=== PATIENT | female | born 1995 ===

== ENCOUNTER 2018-09-26 17:34 | Emergency (ER) | payer SELFPAY ==
[2018-09-26 18:11] VITALS: RESP 18; BMI 29.2
[2018-09-26] MEDS ORDERED: Sodium Chloride 0.9% 500 ML IV STA (18:29)
[2018-09-26 19:08] LABS: ALB/GLOB RATIO 1.1 (1.1-1.8); ALBUMIN 4.2 g/dL (3.0-4.8); ALT/SGPT 18 U/L (7-56); AST/SGOT 26 U/L (14-36); BLOOD UREA NITROGEN 11 mg/dL (7-21); CALCIUM 8.9 mg/dL (8.4-10.5); GFR NON-AFRICAN AMERICAN > 60; LIPASE 66 U/L (23-300)
[2018-09-26 19:12] LABS: BASO # 0.01 K/mm3 (0.0-2.0); BASO % 0.1 % (0.0-3.0); EOS # 0.1 (0.0-0.7); EOS % 1.4 % (1.5-5.0); HEMOGLOBIN 12.2 g/dL (12.0-16.0); LYMPH # 2.4 (1.2-3.4); LYMPH % 33.8 % (22.0-35.0); MEAN CELL VOLUME 88.6 fl (80.0-105.0); MEAN CORPUSCULAR HEMOGLOBIN 28.9 pg (25.0-35.0); MEAN CORPUSCULAR HGB CONC 32.6 g/dl (31.0-37.0); MEAN PLATELET VOLUME 10.9 fl (7.0-11.0); MONO # 0.7 (0.1-0.6); MONO % 9.4 % (1.0-6.0); RBC 4.22 10^6/uL (3.5-6.1); RED CELL DISTRIBUTION WIDTH 14.3 % (11.5-14.5); WHITE BLOOD COUNT 7.1 10^3/uL (4.5-11.0)
[2018-09-26 19:18] LABS: URINE BILIRUBIN NEGATIVE (NEGATIVE); URINE BLOOD SMALL (NEGATIVE); URINE GLUCOSE (UA) NEGATIVE (NEGATIVE); URINE LEUKOCYTE ESTERASE TRACE Leu/uL (NEGATIVE); URINE PROTEIN NEGATIVE mg/dL (<30 mg/dL); URINE UROBILINOGEN 0.2 E.U./dL (<1 E.U./dL)
[2018-09-26 19:22] LABS: URINE APPEARANCE SL CLOUDY (CLEAR); URINE COLOR YELLOW (YELLOW)
[2018-09-26 19:29] LABS: URINE BACTERIA MOD /hpf
--- NOTE | 2018-09-26 20:28 | ED PDOC ---
Arrival/HPI - General Chief Complaint: Abdominal Pain Time Seen by Provider: 09/26/18 18:05 Historian: Patient - History of Present Illness Narrative History of Present Illness (Text): 09/26/18 20:25 23-year-old female presents today with a 4-day history of lower abdominal cramping with some urinary frequency. Patient admits that she is . Patient denies fevers or chills. States she has low back pain on both sides. Patient denies vaginal bleeding or vaginal discharge. She denies chest pain or shortness of breath. Patient states this is her first time being . No medications have been taken at home. Patient states she did not take any medications because she was not sure what she could take during . Past Medical History - Provider Review Nursing Documentation Reviewed: Yes - Travel History Have you recently traveled outside [place] w/in the past 3 mons?: No - Infectious Disease Hx of Infectious Diseases: None - Psychiatric Hx Substance Use: No - Anesthesia Hx Anesthesia: No Hx Anesthesia Reactions: No Hx Malignant Hyperthermia: No Family/Social History - Physician Review Nursing Documentation Reviewed: Yes Family/Social History: Unknown Family HX Smoking Status: Never Smoked Hx Alcohol Use: No Hx Substance Use: No Allergies/Home Meds Allergies/Adverse Reactions: Allergies No Known Allergies Allergy (Verified 09/26/18 18:14) Review of Systems - Review of Systems Constitutional: absent: Fatigue, Fevers Respiratory: absent: SOB, Cough Cardiovascular: absent: Chest Pain, Palpitations Gastrointestinal: Abdominal Pain. absent: Constipation, Diarrhea, Nausea, Vomiting Genitourinary Female: Frequency. absent: Dysuria, Hematuria, Vaginal Bleeding, Vaginal Discharge Musculoskeletal: Back Pain. absent: Arthralgias, Neck Pain Skin: absent: Rash, Pruritis Neurological: absent: Headache, Dizziness Psychiatric: absent: Anxiety, Depression Physical Exam Vital Signs Reviewed: Yes Vital Signs Temp Pulse Resp BP Pulse Ox 09/26/18 17:34 100.2 F H 84 18 109/66 99 Temperature: Afebrile Blood Pressure: Normal Pulse: Regular Respiratory Rate: Normal Appearance: Positive for: Well-Appearing, Non-Toxic, Comfortable Pain Distress: None Mental Status: Positive for: Alert and Oriented X 3 - Systems Exam Head: Present: Atraumatic Mouth: Present: Moist Mucous Membranes Neck: Present: Normal Range of Motion Respiratory/Chest: Present: Clear to Auscultation, Good Air Exchange. No: Respiratory Distress, Accessory Muscle Use Cardiovascular: Present: Regular Rate and Rhythm, Normal S1, S2. No: Murmurs Abdomen: Present: Tenderness (minimal lower abdominal tenderness. ). No: Distention, Peritoneal Signs, Rebound, Guarding Back: Present: Normal Inspection. No: CVA Tenderness, Midline Tenderness, Paraspinal Tenderness Upper Extremity: Present: Normal ROM Lower Extremity: Present: Normal ROM Neurological: Present: GCS=15, Speech Normal Skin: Present: Warm, Dry, Normal Color. No: Rashes Psychiatric: Present: Alert, Oriented x 3 Medical Decision Making ED Course and Treatment: 09/26/18 20:26 Patient is nontoxic well appearing in no distress. vitals are stable. CBC: wnl CMP: wnl Beta hC.30 TYPE AND SCREEN: B+ Urinalysis: + leukocytes, moderate bacteria. Ultrasound: FINDINGS: GESTATION: A tiny intrauterine gestational sac is identified which measures approximately 5.7 x 5.1 x 4.5 mm in size. This is out of range for age estimation. As of yet, there is no detection of a pole or cardiac activity. Consequently, an anembryonic gestation cannot be excluded at this time. Short-term reevaluation in 7-10 days is recommended. UTERUS: Unremarkable. No myometrial mass. CERVIX: Closed. Unremarkable. OVARIES: Unremarkable. No mass. FREE FLUID: No free fluid. IMPRESSION: Small intrauterine gestational sac as described above. As of yet, no detectable pole or cardiac activity. Therefore, an anembryonic gestation cannot be excluded at this time. Short-term reevaluation in 7-10 days is recommended. Electronically signed on Sep 26, 2018 8:56:47 PM EDT by: Buzz Healy M.D., M.B.A., Certified By [employer] Trained MRI and CT Specialist Discussed all the results the patient -Using inside account executive telephone sterilizer number: [id number] advised f/u with the obstetrics and gynecology professor within the next 2 days. advised immediate return if symptoms worsen,persist or if new symptoms develop. Patient verbalizes understanding of discharge instructions and need for immediate followup. All aspects of this case were discussed the attending of record. Impression: threatened , UTI Tylenol every 4 hours as needed for pain Keflex 1 capsule twice daily x 7 days. Increase fluids vitamins daily Followup with the coffee farmer within the next 2 days Return immediately if symptoms worsen persist or if new symptoms develop: High fevers, heavy bleeding, severe abdominal pain, vomiting, diarrhea, dizziness or weakness or any other concerning symptoms develop. - Lab Interpretations Lab Results: Total Bilirubin 0.2 mg/dL (0.2-1.3) 09/26/18 18:55 AST 26 U/L (14-36) 09/26/18 18:55 ALT 18 U/L (7-56) 09/26/18 18:55 Alkaline Phosphatase 75 U/L (38-126) 09/26/18 18:55 Total Protein 8.1 g/dL (5.8-8.3) 09/26/18 18:55 Albumin 4.2 g/dL (3.0-4.8) 09/26/18 18:55 Globulin 3.9 gm/dL 09/26/18 18:55 Albumin/Globulin Ratio 1.1 (1.1-1.8) 09/26/18 18:55 Lipase 66 U/L (23-300) 09/26/18 18:55 Urine Color Yellow (YELLOW) 09/26/18 18:55 Urine Appearance Sl cloudy (CLEAR) 09/26/18 18:55 Urine pH 6.0 (4.7-8.0) 09/26/18 18:55 Ur Specific [place] 1.025 (1.005-1.035) 09/26/18 18:55 Urine Protein Negative mg/dL (<30 mg/dL) 09/26/18 18:55 Urine Glucose (UA) Negative mg/dL (NEGATIVE) 09/26/18 18:55 Urine Ketones Negative mg/dL (NEGATIVE) 09/26/18 18:55 Urine Blood Small (NEGATIVE) H 09/26/18 18:55 Urine Nitrate Negative (NEGATIVE) 09/26/18 18:55 Urine Bilirubin Negative (NEGATIVE) 09/26/18 18:55 Urine Urobilinogen 0.2 E.U./dL (<1 E.U./dL) 09/26/18 18:55 Ur Leukocyte Esterase Trace Coco/uL (NEGATIVE) H 09/26/18 18:55 Urine RBC 2 - 5 /hpf (0-2) H 09/26/18 18:55 Urine WBC 5 - 10 /hpf (0-6) H 09/26/18 18:55 Ur Epithelial Cells 6 - 8 /hpf (0-5) H 09/26/18 18:55 Urine Bacteria Mod /hpf (NONE) 09/26/18 18:55 Beta HCG, Quant 4033.30 mIU/mL (0-6.15) H 09/26/18 18:55 - RAD Interpretation Radiology Orders: 09/26/18 18:30 OB TRANSVAGINAL [US] Stat - Medication Orders Current Medication Orders: Discontinued Medications Sodium Chloride (Sodium Chloride 0.9%) 500 mls @ 999 mls/hr IV .Q31M STA Stop: 09/26/18 18:59 Last Admin: 09/26/18 18:50 Dose: 999 mls/hr eMAR Start Stop Document 09/26/18 18:50 BB (Rec: 09/26/18 18:51 BB [id number]) Intravenous Solution Start Date 09/26/18 Start Time 18:51 Disposition/Present on Arrival - Present on Arrival Any Indicators Present on Arrival: No History of DVT/PE: No History of Uncontrolled Diabetes: No Urinary Catheter: No History of Decub. Ulcer: No History Surgical Site Infection Following: None - Disposition Have Diagnosis and Disposition been Completed?: Yes Diagnosis: Threatened , Urinary tract infection Disposition: HOME/ ROUTINE Disposition Time: 00:26 Patient Plan: Discharge Condition: GOOD Discharge Instructions (ExitCare): Threatened Miscarriage (DC) Print Language: KYRGYZ Additional Instructions: Tylenol every 4 hours as needed for pain Keflex 1 capsule twice daily x 7 days. Increase fluids vitamins daily Followup with the coffee farmer within the next 2 days Return immediately if symptoms worsen persist or if new symptoms develop: High fevers, heavy bleeding, severe abdominal pain, vomiting, diarrhea, dizziness or weakness or any other concerning symptoms develop. Prescriptions: Cephalexin [Keflex] 500 mg PO BID #14 capsule Pnv No.95/Ferrous Fum/Folic AC [ Tablet] 1 each PO DAILY #30 tablet [facility] [Outside] - Follow up with primary [facility] [Outside] - Follow up with primary Velma Bell MD [Staff Provider] - Follow up with primary Forms: [employer] (Liberian)
[2018-09-26 22:18] VITALS: PULSE 72; O2SAT 100
[2018-09-27 00:45] VITALS: BP 108/72; TEMP 98.9
--- NOTE | 2018-09-27 10:06 | US ---
Date of service: 09/26/2018 PROCEDURE: First trimester ultrasound. HISTORY: pain/ + test COMPARISON: None TECHNIQUE: Standard protocol for this study/examination. FINDINGS: LMP: 09/16/2018. Prior examinations from the current : None TECHNIQUE: Real-time 2D imaging, duplex and color Doppler. FINDINGS: No pole identified. Gestational sac measurement 5.1 mm. Below the threshold for calculation of a reliable gestational age Gestational age derived from LMP: 1 week 3 days CARLY based on LMP: 06/23/2019. No pole detected. Yolk sac not identified Cervix: No Cervical abnormalities: Negative examination for cervical dilatation or effacement. Closed cervix measuring 3.66 cm Subchorionic hemorrhage: None UTERUS: 4.7 x 4.8 x 7.8 cm. ADNEXA: Right: 1.9 x 2.1 cm. Normal Doppler arterial waveform documented. Left: 1.4 x 2.5 cm. Normal Doppler arterial waveform documented Fluid in the cul-de-sac: None IMPRESSION: Well-formed gestational sac without visible yolk sac or pole. Unremarkable uterus and cervix is well as adnexa. Concordant findings (preliminary report) provided by [facility].
== END 2018-09-27 00:45 | disposition home or self-care (01) ==
LOC: ED 17:34
DX: O20.0 Threatened abortion (principal); O23.40 Unspecified infection of urinary tract in pregnancy, unspecified trimester; Z3A.00 Weeks of gestation of pregnancy not specified
CPT/HCPCS: 76817; 80053; 81001; 81025; 83690; 84702; 85025; 86850; 86900; 87086; 87181; 99284; J7040

== ENCOUNTER 2018-10-09 07:49 | Emergency (ER) | payer SELFPAY ==
[2018-10-09 07:50] VITALS: BMI 29.2
[2018-10-09 08:05] VITALS: RESP 18; TEMP 97.7
--- NOTE | 2018-10-09 08:23 | ED PDOC ---
Arrival/HPI - General Chief Complaint: Lower Extremity Problem/Injury Historian: EMS - History of Present Illness Narrative History of Present Illness (Text): 10/09/18 08:18 23 year old F, 7 wks presents via EMS s/p mechanical fall this morning. Patient reports slipped while walking down the stairs, fell, landed on right ankle and twisted it. Patient denies any head trauma or LOC. EMS reports patient had an abdominal Ultrasound performed yesterday but they do not have the results. Patient denies any fevers, chills, headache, dizziness, chest pain, shortness of breath, dyspnea on exertion, cough, diaphoresis, abdominal pain, nausea, vomiting, diarrhea, back pain, neck pain, or any other complaint. Time/Duration: Prior to Arrival Symptom Onset: Sudden Symptom Course: Unchanged Activities at Onset: Light Context: Slipped Past Medical History - Provider Review Nursing Documentation Reviewed: Yes - Infectious Disease Hx of Infectious Diseases: None - Cardiac Hx Cardiac Disorders: No - Pulmonary Hx Respiratory Disorders: No - HEENT Hx HEENT Disorder: No - Renal Hx Renal Disorder: No - Endocrine/Metabolic Hx Endocrine Disorders: No - Hematological/Oncological Hx Blood Disorders: No - Integumentary Hx Dermatological Disorder: No - Musculoskeletal/Rheumatological Hx Musculoskeletal Disorders: No - Gastrointestinal Hx Gastrointestinal Disorders: No - Genitourinary/Gynecological Hx Genitourinary Disorders: No - Psychiatric Hx Psychophysiologic Disorder: No Hx Substance Use: No - Anesthesia Hx Anesthesia: No Hx Anesthesia Reactions: No Hx Malignant Hyperthermia: No Family/Social History - Physician Review Nursing Documentation Reviewed: Yes Family/Social History: Unknown Family HX Smoking Status: Never Smoked Hx Alcohol Use: No Hx Substance Use: No Allergies/Home Meds Allergies/Adverse Reactions: Allergies No Known Allergies Allergy (Verified 09/26/18 18:14) Review of Systems - Physician Review All systems were reviewed & negative as marked: Yes - Review of Systems Constitutional: absent: Fevers ENT: absent: Sore Throat, Rhinorrhea, Epistaxis Respiratory: absent: SOB, Cough, Wheezing Cardiovascular: absent: Chest Pain, Palpitations, Orthopnea, Syncope Gastrointestinal: absent: Abdominal Pain, Diarrhea, Nausea, Vomiting, Hemato chezia, Hematemesis Genitourinary Female: absent: Dysuria Musculoskeletal: Arthralgias (right ankle) Skin: absent: Rash, Cellulitis Neurological: absent: Headache, Dizziness, Focal Weakness, Speech Changes, Facial Droop, Disequilibrium, Seizure Physical Exam Vital Signs Reviewed: Yes Vital Signs Temp Pulse Resp BP Pulse Ox 10/09/18 08:01 97.7 F 82 18 132/77 100 Temperature: Afebrile Blood Pressure: Normal Pulse: Regular Respiratory Rate: Normal Appearance: Positive for: Well-Appearing, Non-Toxic, Comfortable Pain Distress: Mild Mental Status: Positive for: Alert and Oriented X 3 - Systems Exam Head: Present: Atraumatic, Normocephalic Lower Extremity: Present: NORMAL PULSES, Swelling (right foot malleolus), Neurovascularly Intact (right foot), Capillary Refill < 2 s (right foot), Other (difficulty inverting and everting right foot secondary to pain. ecchymosis to dorsal mid foot). No: Deformity Neurological: Present: GCS=15, CN II-XII Intact, Speech Normal Psychiatric: Present: Alert, Oriented x 3, Normal Insight, Normal Concentration Medical Decision Making ED Course and Treatment: 10/09/18 08:24 Impression: 23 year old F, 7 wks presents via EMS s/p mechanical fall this morning. Patient reports slipped while walking down the stairs, fell, landed on right ankle and twisted it. Patient denies any head trauma or LOC. Plan: -- Beta HCG -- Right Ankle X Ray -- Labs -- Urinalysis -- Reassess and disposition Prior Visits: Notes and results from previous visits were reviewed. Progress Notes: 10/09/18 09:23 Due to the patient's current state, a consent form was sought explaining the risks vs benefit of obtaining imaging. Consent form was only a vailable in Cambodian with explanation for urgent need for imaging to rule out fracture through imaging fully explained to patient in Cambodian and Haitian. She demonstrates understanding and verbalizes her consent to proceed with imaging. Consent form signed. 10/09/18 11:45 Labs reviewed with no acute abnormalities noted. XR perfomed with no obvious fracture noted on imaging. Urinalysis pending. - Lab Interpretations Lab Results: 10/09/18 09:41 10/09/18 09:41 Lab Results 10/09/18 09:41: Beta HCG, Quant 41055.00 H 10/09/18 09:41: Sodium 139, Potassium 4.3, Chloride 104, Carbon Dioxide 25, Anion Gap 15, BUN 6 L, Creatinine 0.5 L, Est GFR ( Amer) > 60, Est GFR (Non-Af Amer) > 60, Random Glucose 82, Calcium 9.6, Total Bilirubin 0.3, AST 36 D, ALT 49, Alkaline Phosphatase 82, Total Protein 7.7, Albumin 4.2, Globulin 3.5, Albumin/Globulin Ratio 1.2 10/09/18 09:41: Blood Type B POSITIVE, Antibody Screen Negative, BBK History Checked Patient has bt 10/09/18 09:41: WBC 8.8 D, RBC 4.18, Hgb 12.0, Hct 36.1, MCV 86.4, MCH 28.7, MCHC 33.2, RDW 13.6, Plt Count 264, MPV 11.5 H, Neut % (Auto) 66.9, Lymph % (Auto) 25.1, Allen % (Auto) 7.3 H, Eos % (Auto) 0.6 L, Baso % (Auto) 0.1, Lymph # (Auto) 2.2, Allen # (Auto) 0.6, Eos # (Auto) 0.1, Baso # (Auto) 0.01, Absolute Neuts (auto) 5.88 I have reviewed the lab results: Yes - RAD Interpretation Narrative RAD Interpretations (Text): 10/09/18 13:03 Ankle X Ray Normal Right Ankle Radiographs Radiology Orders: 10/09/18 08:14 ANKLE RIGHT 3 VIEWS ROUTINE [RAD] Stat Facilities Operator: Radiologist - Santyibe Statement The provider has reviewed the documentation as recorded by the Dariel Christianson All medical record entries made by the Dariel were at my direction and personally dictated by me. I have reviewed the chart and agree that the record accurately reflects my personal performance of the history, physical exam, medical decision making, and the department course for this patient. I have also personally directed, reviewed, and agree with the discharge instructions and disposition. Disposition/Present on Arrival - Present on Arrival Any Indicators Present on Arrival: No History of DVT/PE: No History of Uncontrolled Diabetes: No Urinary Catheter: No History of Decub. Ulcer: No History Surgical Site Infection Following: None - Disposition Have Diagnosis and Disposition been Completed?: Yes Diagnosis: Foot contusion, Sprain and strain of ankle, Fall Disposition: HOME/ ROUTINE Disposition Time: 12:55 Patient Plan: Discharge Patient Problems: Current Active Problems Problem Status Onset Fall Acute Foot contusion Acute Sprain and strain of ankle Acute Discharge Instructions (ExitCare): Contusion (DC), Foot Sprain (DC) Print Language: BURKIN[place] Additional Instructions: All medical record entries made by the Scribe were at my direction and pers onally dictated by me. I have reviewed the chart and agree that the record accurately reflects my personal performance of the history, physical exam, medical decision making, and the department course for this patient. I have also personally directed, reviewed, and agree with the discharge instructions and disposition. Please follow up with the HIDE [facility]ER listed in your discharge paperwork Remember, you CANNOT take ibuprofen. Please take acetaminophen for pain every 4 hours for pain and apply ice to the foot. Prescriptions: Acetaminophen [Tylenol] 325 mg PO Q4H #10 capsule Referrals: Evangelista Carey MD [Medical Doctor] - Follow up with primary Forms: [employer] (H[place]ian), SCHOOL NOTE, WORK NOTE
[2018-10-09 10:01] LABS: BASO # 0.01 K/mm3 (0.0-2.0); BASO % 0.1 % (0.0-3.0); EOS # 0.1 (0.0-0.7); EOS % 0.6 % (1.5-5.0); LYMPH # 2.2 (1.2-3.4); LYMPH % 25.1 % (22.0-35.0); MEAN CELL VOLUME 86.4 fl (80.0-105.0); MEAN CORPUSCULAR HEMOGLOBIN 28.7 pg (25.0-35.0); MEAN CORPUSCULAR HGB CONC 33.2 g/dl (31.0-37.0); MEAN PLATELET VOLUME 11.5 fl (7.0-11.0); MONO # 0.6 (0.1-0.6); MONO % 7.3 % (1.0-6.0); RBC 4.18 10^6/uL (3.5-6.1); RED CELL DISTRIBUTION WIDTH 13.6 % (11.5-14.5); WHITE BLOOD COUNT 8.8 10^3/uL (4.5-11.0)
[2018-10-09 10:18] LABS: ALB/GLOB RATIO 1.2 (1.1-1.8); ALBUMIN 4.2 g/dL (3.0-4.8); ALT/SGPT 49 U/L (7-56); AST/SGOT 36 U/L (14-36); BLOOD UREA NITROGEN 6 mg/dL (7-21); CALCIUM 9.6 mg/dL (8.4-10.5); GFR NON-AFRICAN AMERICAN > 60
[2018-10-09 11:13] VITALS: O2SAT 98
--- NOTE | 2018-10-09 12:10 | RAD ---
Date of service: 10/09/2018 PROCEDURE: Right Ankle Radiographs. HISTORY: s/p mechanical fall COMPARISON: None available. TECHNIQUE: 3 views obtained. FINDINGS: BONES: Normal. No fracture. JOINTS: Normal. No osteoarthritis. Ankle mortise maintained. Talar dome intact SOFT TISSUES: Normal. OTHER FINDINGS: None. IMPRESSION: Normal right ankle radiographs.
[2018-10-09 14:16] VITALS: BP 121/64; PULSE 74
== END 2018-10-09 14:20 | disposition home or self-care (01) ==
LOC: ED 07:49
DX: O9A.211 Injury, poisoning and certain other consequences of external causes complicating pregnancy, first trimester (principal); S96.911A Strain of unspecified muscle and tendon at ankle and foot level, right foot, initial encounter; S93.401A Sprain of unspecified ligament of right ankle, initial encounter; S90.01XA Contusion of right ankle, initial encounter; W10.9XXA Fall (on) (from) unspecified stairs and steps, initial encounter; Y93.01 Activity, walking, marching and hiking; Z3A.01 Less than 8 weeks gestation of pregnancy